=== PATIENT | female | born 1945 ===

== ENCOUNTER 2022-02-03 10:42 | Outpatient (CLI) | payer OTHER ==
[~2022-02-03 10:42] MED LIST: JANUVIA25 MG PO; LASIX20 MG PO; VASOTEC10 MG NGT
== END 2022-02-03 10:43 | disposition home or self-care (01) ==
LOC: SONOGRAMA 10:42
PROVIDERS: ATTEND Pathology Anatomic Pathology & Clinical Pathology
DX: E04.2 Nontoxic multinodular goiter (principal)